=== PATIENT | female | born 1960 | race Caucasian/White ===

== ENCOUNTER 2019-02-20 08:26 | Emergency (ER) | payer OTHER ==
[~2019-02-20] VITALS: Ht 149.9 cm; Wt 70.3 kg
[2019-02-20] MEDS ORDERED: SYNTHROID75 MCG (08:34)
[2019-02-20] MEDS ORDERED: ALLEGRA ALLERGY60 MG (08:34)
[2019-02-20] MEDS ORDERED: MAGNESIUM200 MG (08:34)
[2019-02-20] MEDS ORDERED: SINGULAIR10 MG (08:34)
== END 2019-02-20 10:00 | disposition home or self-care (01) ==
LOC: ER 08:26
DX: B34.8 Other viral infections of unspecified site (principal); R05 Cough